=== PATIENT | female | born 1950 | race Caucasian/White ===

== ENCOUNTER → 2018-06-30 | Outpatient (CLI) | payer MEDICARE, BC ==
[~2018-06-30] MED LIST: AMBIEN5 MG PO; BENTYL10 MG PO; CYCLOBENZAPRINE10 MG PO; FLUOXETINE PO; GLYBURIDE-METF1 EAC1 PO; LEVEMIR100 UNIT/1 INJ; LEVOTHYROXINE112 MCG PO; LEVOTHYROXINE125 MCG PO; LISINOPRIL PO; MELOXICAM15 MG PO; MELOXICAM7.5 MG PO; MIRTAZAPINE30 MG PO; NEXIUM20 MG PO; NOVOLOG INJ; OMEPRAZOLE40 MG PO; PANTOPRAZOLE SO40 MG PO; PROPRANOLOL HCL40 MG PO; REGLAN10 MG PO; SERTRALINE HCL50 MG PO; SIMVASTATIN40 MG PO; SINEMET 10-1001 EACH PO; SINEMET 25-1001 EACH PO; SUCRALFATE1 GM PO; ZOFRAN ODT4 MG PO; ZOLPIDEM TARTRA10 MG PO
--- NOTE | 2018-06-30 10:48 | Diagnostic Imaging Report ---
PROCEDURE: X-RAY CHEST, TWO VIEWS COMPARISON: Patients [facility], DX, CHEST SINGLE (PORTABLE), 03/31/2017, 17:53. INDICATIONS: HIGH CHEST PAIN FINDINGS: LUNGS: No consolidations or edema. PLEURA: No effusions or pneumothorax. HEART \T\ MEDIASTINUM: The heart is within normal size-limits. Again noted are surgical clips in the left upper paratracheal region. BONES \T\ SOFT TISSUES: No acute findings. There are mild degenerative changes of the spine. CONCLUSION: No acute thoracic abnormality. Pedro Smith D.O. Dictated by: Pedro Smith D.O. on 06/30/2018 at 10:55 Electronically approved by: Pedro Smith D.O. on 06/30/2018 at 10:55
--- NOTE | 2018-06-30 14:16 | Diagnostic Imaging Report ---
PROCEDURE: L-SPINE COMPLETE COMPARISON: None. INDICATIONS: BACK PAIN FINDINGS: The lumbar spine is in anatomic alignment without evidence of fracture, spondylolisthesis, or spondylolysis. Disc space narrowing at L5-S1 with mild degenerative change. There are clips in the right upper quadrant of the abdomen. The paraspinal soft tissues are normal. CONCLUSION: Disc space narrowing at L5-S1 with mild degenerative change. Pedro Smith D.O. Dictated by: Pedro Smith D.O. on 06/30/2018 at 14:24 Electronically approved by: Pedro Smith D.O. on 06/30/2018 at 14:24
== END ==
LOC: RAD 09:23
DX: M54.5 Low back pain (principal); R07.89 Other chest pain
CPT/HCPCS: 71046; 72110

== ENCOUNTER → 2018-07-08 | Outpatient (CLI) | payer MEDICARE, BC ==
--- NOTE | 2018-07-08 11:19 | Diagnostic Imaging Report ---
EXAMINATION: MRI of the lumbar spine without contrast HISTORY: Mid low back pain radiating to the right lower extremity for the last 4 months COMPARISON: Lumbar spine x-ray done 06/30/2018 TECHNIQUE: Sagittal T1, T2, STIR; axial T2 and proton density. FINDINGS: It is assumed that there are 5 lumbar vertebrae. Curvature/Alignment: Normal lordosis. Vertebrae: No evidence of recent fracture, infection, or neoplasm. Conus: Normal, terminating at L1 Cauda equina: Unremarkable. Lower thoracic: Unremarkable. Paraspinal soft tissues: Moderate paraspinal musculature atrophy. Degenerative changes: L1-L2: Unremarkable. L2-L3: Unremarkable. L3-L4: Bilateral facet arthroses without stenoses L4-L5: Bilateral facet arthrosis without stenoses L5-S1: Decreased disc height and T2 signal intensity, mild symmetric disc bulge, tiny marginal osteophytes and facet arthrosis. Right-sided laminectomy defect, no evidence of recurrent disc herniation. Sacroiliac joints: Mild degenerative changes bilaterally. IMPRESSION: 1. 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 2. Spondylolysis at L5-S1 and decompressive laminectomy. No canal stenosis. No recurrent disc herniation. Signed by: Dr. Jacinda Gallagher M.D. on 07/08/2018 11:16 AM
== END ==
LOC: MRI 09:40
DX: M54.5 Low back pain (principal); M51.36 Other intervertebral disc degeneration, lumbar region
CPT/HCPCS: 72148

== ENCOUNTER → 2018-08-04 | Outpatient (CLI) | payer MEDICARE, BC ==
--- NOTE | 2018-08-04 14:37 | Diagnostic Imaging Report ---
PROCEDURE:X-RAY LEFT HAND, THREE OR MORE VIEWS COMPARISON:None. INDICATIONS:LEFT WRIST/HAND PAIN FROM FALL FINDINGS: There are no fractures, dislocations, lytic or blastic lesions. The bones are demineralized. Degenerative changes with erosion at the base of the second metacarpal are noted. The soft-tissues are unremarkable. CONCLUSION: Diffuse bony osteopenia without evidence of a fracture or dislocation. Pedro Smith D.O. Dictated by: Pedro Smith D.O. on 08/04/2018 at 14:46 Electronically approved by: Pedro Smith D.O. on 08/04/2018 at 14:46
--- NOTE | 2018-08-04 14:39 | Diagnostic Imaging Report ---
PROCEDURE:X-RAY LEFT WRIST, COMPLETE COMPARISON:None. INDICATIONS:LEFT WRIST/HAND PAIN FROM FALL FINDINGS: There are no fractures, dislocations, lytic or blastic lesions. The bones are demineralized. The soft-tissues are unremarkable. CONCLUSION: Bony osteopenia without evidence of a fracture. Pedro Smith D.O. Dictated by: Pedro Smith D.O. on 08/04/2018 at 14:48 Electronically approved by: Pedro Smith D.O. on 08/04/2018 at 14:48
== END ==
LOC: RAD 09:24
DX: M25.532 Pain in left wrist (principal); M79.642 Pain in left hand; W19.XXXA Unspecified fall, initial encounter; M85.842 Other specified disorders of bone density and structure, left hand

== ENCOUNTER → 2018-11-17 | Outpatient (CLI) | payer MEDICARE, BC ==
--- NOTE | 2018-11-17 11:11 | Diagnostic Imaging Report ---
Right knee MRI without contrast. History: Knee pain. Fall. Decreased range of motion. Injury. Arthritis. Pain worse with walking. Comparison: None. Technique: Multiplanar multi-sequence MRI of the knee without contrast. Findings: Medial compartment: There is a complex tear involving the posterior horn and body segments of the medial meniscus best seen on coronal image 15. There are regions of full-thickness articular cartilage loss in the medial compartment with mild underlying bone marrow edema. There are peripheral marginal osteophytes. The medial collateral complex is intact. Lateral compartment: No meniscal tear or cartilage abnormality. The LCL complex is normal. Intercondylar notch: The ACL and PCL are intact. Patellofemoral compartment: There are regions of full-thickness articular cartilage loss in the patellofemoral compartment most pronounced at the medial patellar facet. Extensor mechanism: The quadriceps and patellar tendons are normal. Other findings: There is a joint effusion and synovitis. There is no acute fracture, subluxation or avascular necrosis. IMPRESSION: Complex medial meniscus tear with associated degenerative arthrosis in the medial compartment of the knee. Regions of full-thickness articular cartilage loss in the patellofemoral compartment most pronounced at the medial patellar facet. Signed by: Dr. Rowdy Adrian M.D. on 11/17/2018 11:07 AM
== END ==
LOC: MRI 09:35
DX: M25.561 Pain in right knee (principal)

== ENCOUNTER 2019-02-25 21:21 | Emergency (ER) | payer MEDICARE, BC ==
--- OUTSIDE RECORDS SUMMARY | 2019-02-25 21:23 | XMS REPORT ---
Author [facility] Address Unknown Phone Unavailable Care Team Providers Care Computer Programming Supervisor Name Role Phone LIANA MAYORGA Unavailable Unavailable Problems This patient has no known problems. Allergies, Adverse Reactions, Alerts This patient has no known allergies or adverse reactions. Medications This patient has no known medications. Results Test Description Test Time Test Comments Text Results Atomic Results Result Comments MRI RIGHT KNEE WO 2018-11-17 10:57:00 [place] [address] Patient Name: LUCRECIA GARCIA MR #: [id number] : 1950 Age/Sex: 68/F Req #: [id number] Adm Physician: Ordered by: LIANA MAYORGA MD Report #: [id number] Location: MRI Room/Bed: Procedure: [id number] MRI/MRI RIGHT KNEE WO Exam Date: 11/17/18 Exam Time: 0958 REPORT STATUS: Signed Right knee MRI without contrast. History: Knee pain. Fall. Decreased range of motion. Injury. Arthritis. Pain worse with walking. Comparison: None. Technique: Multiplanar multi-sequence MRI of the knee without contrast. Findings: Medial compartment: There is a complex tear involving the posterior horn and body segments of the medial meniscus best seen on coronal image 15. There are regions of full-thickness articular c artilage loss in the medial compartment with mild underlying bone marrow edema. There are peripheral marginal osteophytes. The medial collateral complex is intact. Lateral compartment: No meniscal tear or cartilage abnormality. The LCL complex is normal. Intercondylar notch: The ACL and PCL are intact. Patellofemoral compartment: There are regions of full- thickness articular cartilage loss in the patellofemoral compartment most pronounced at the medial patellar facet. Extensor mechanism: The quadriceps and patellar tendons are normal. Other findings: There is a joint effusion and synovitis. There is no acute fracture, subluxation or avascular necrosis. IMPRESSION: Complex medial meniscus tear with associated degenerative arthrosis in the medial compartment of the knee. Regions of full-thickness articular cartilage loss in the patellofemoral compartment most pronounced at the medial patellar facet. Signed by: Dr. Rowdy Adrian M.D. on 11/17/2018 11:07 AM Dictated By: ROWDY ADRIAN MD, MD 06 Transcribed By: KAYODE on 11/17/181106 COPY TO: LIANA MAYORGA MD WRIST COMPLETE LEFT 2018-08-04 14:48:00 [place] [address] Patient Name: LUCRECIA GARCIA MR #: [id number] : 1950 Age/Sex: 67/F Req #: [id number] Adm Physician: Ordered by: LIANA MAYORGA MD Report #: [id number] Location: [facility] Room/Bed: Procedure: [id number] DX/WRIST COMPLETE LEFT Exam Date: 08/04/18 Exam Time: 0945 REPORT STATUS: Signed PROCEDURE: X-RAY LEFT WRIST, COMPLETE REGINA RISON: None. INDICATIONS: LEFT WRIST/HAND PAIN FROM FALL FINDINGS: There are no fractures, dislocations, lytic or blastic lesions. The bones are demineralized. The soft-tissues are unremarkable. CONCLUSION: Bony osteopenia without evidence of a fracture. Amol Smith D.O. Dictated by: Amol Smith D.O. on 08/04/2018 at 14:48 Electronically approved by: Amol Smith D.O. on 08/04/2018 at 14:48 Dictated By: AMOL SMITH DO 1448 Transcribed By: OMEGA on 08/04/18 1448 COPY TO: LIANA MAYORGA MD HAND 3+ VIEWS LEFT 2018-08-04 14:46:00 [place] [address] Patient Name: LUCRECIA GARCIA MR #: [id number] : 1950 Age/Sex: 67/F Req #: [id number] Adm Physician: Ordered by: LIANA MAYORGA MD Report #: [id number] Location: [facility] Room/Bed: Procedure: [id number] DX/HAND 3+ VIEWS LEFT Exam Date: 08/04/18 Exam Time: 0945 REPORT STATUS: Signed PROCEDURE: X-RAY LEFT HAND, THREE OR MORE VIEWS COMPARISON: None. INDICATIONS: LEFT WRIST/HAND PAIN FROM FALL FINDINGS: There are no fractures, dislocations, lytic or blastic lesions. The bones are demineralized. Degenerative changes with erosion at the base of the second metacarpal are noted. The soft-tissues are unremarkable. CONCLUSION: Diffuse bony osteopenia without evidence of a fracture or dislo cation. Amol Smith D.O. Dictated by: Amol Smith D.O. on 08/04/2018 at 14:46 Electronically approved by: Amol Smith D.O. on 08/04/2018 at 14:46 Dictated By: AMOL SMITH DO 45 Transcribed By: OMEGA on 08/04/18 1446 COPY TO: LIANA MAYORGA MD MRI SPINE LUMBAR WO 2018-07-08 10:46:00 [place] [address] Patient Name: LUCRECIA GARCIA MR #: [id number] : 1950 Age/Sex: 67/F Req #: [id number] Adm Physician: Ordered by: LIANA MAYORGA MD Report #: [id number] Location: MRI Room/Bed: Procedure: [id number] MRI/MRI SPINE LUMBAR WO Exam Date: Exam Time: REPORT STATUS: Signed EXAMINATION: MRI of the lumbar spine without contrast HISTORY: Mid low back pain radiating to the right lower extremity for the last 4 months COMPARISON: Lumbar spine x-ray done 06/30/2018 TECHNIQUE: Sagittal T1, T2, STIR; axial T2 and proton density. FINDINGS: It is assumed that there are 5 lumbar vertebrae. Curvature/Alignment: Normal lordosis. Vertebrae: No evidence of recent fracture, infection, or neoplasm. Conus: Normal, terminating at L1 Cauda equina: Unremarkable. Lower thoracic: Unremarkable. Paraspinal soft tissues: Moderate paraspinal musculature atrophy. Degenerative changes: L1-L2: Unremarkable. L2-L3: Unremarkable. L3-L4: Bilateral facet arthroses without stenoses L4-L5: Bilateral facet arthrosis without stenoses L5- S1: Decreased disc height and T2 signal intensity, mild symmetric disc bulge, tiny marginal osteophytes and facet arthrosis. Right-sided laminectomy defect, no evidence of recurrent disc herniation. Sacroiliac joints: Mild degenerative changes bilaterally. IMPRESSION: 1. 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 2. Spondylolysis at L5-S1 and decompressive laminectomy. No canal stenosis. No recurrent disc herniation. Signed by: Dr. Raegan Gallagher M.D. on 07/08/2018 11:16 AM Dictated By: RAEGAN GALLAGHER MD 111 Transcribed By: KAYODE on 07/08/18 111 COPY TO: LIANA MAYORGA MD SP LUMBAR, COMPLETE MIN 4VW 2018-06-30 14:24:00 [place] [address] Patient Name: LUCRECIA GARCIA MR #: [id number] : 1950 Age/Sex: 67/F Req #: [id number] Adm Physician: Ordered by: LIANA MAYORGA MD Report #: [id number] Location: [facility] Room/Bed: Procedure: [id number] DX/SP LUMBAR, COMPLETE MIN 4VW Exam Date: 06/30/18 Exam Time: 1000 REPORT STATUS: Signed PROCEDURE: L-SPINE COMPLETE COMPARISON: None. INDICATIONS: BACK PAIN FINDINGS: The lumbar spine is in anatomic alignment without evidence of fracture, spondylolisthesis, or spondylolysis. Disc space narrowing at L5-S1 with mild degenerative change. There are clips in the right upper quadrant of the abdomen. The paraspinal soft tissues are normal. CONCLUSION: Disc space narrowing at L5-S1 with mild degenerative change. Amol Smith D.O. Dictated by: Amol Smith D.O. on 06/30/2018 at 14:24 Electronically approved by: Amol Smith D.O. on 06/30/2018 at 14:24 Dictated By: AMOL SMITH DO 142 Transcribed By: OMEGA on 06/30/18 142 COPY TO: LIANA MAYORGA MD CHEST 2 VIEWS 2018-06-30 10:55:00 [place] [address] Patient Name: LUCRECIA GARCIA MR #: [id number] : 1950 Age/Sex: 67/F Req #: [id number] Adm Physician: Ordered by: LIANA MAYORGA MD Report #: [id number] Location: RAD Room/Bed: Procedure: [id number] DX/CHEST 2 VIEWS Exam Date: 06/30/18 Exam Time: 1000 REPORT STATUS: Signed PROCEDURE: X-RAY CHEST, TWO VIEWS COMPARISON: [facility], DX, CHEST SINGLE (PORTABLE), 03/31/2017, 17:53. INDICATIONS: HIGH CHEST PAIN FINDINGS: LUNGS: No consolidations or edema. PLEURA: No effus ions or pneumothorax. HEART T MEDIASTINUM: The heart is within normal size-limits. Again noted are surgical clips in the left upper paratracheal region. BONES T SOFT TISSUES: No acute findings. There are mild degenerative changes of the spine. CONCLUSION: No acute thoracic abnormality. Amol Smith D.O. Dictated by: Amol Smith D.O. on 06/30/2018 at 10:55 Electronically approved by: Amol Smith D.O. on 06/30/2018 at 10:55 Dictated By: AMOL SMITH DO 1055 Transcribed By: OMEGA on 06/30/18 1055 COPY TO: LIANA MAYORGA MD
== END 2019-02-25 21:40 | disposition left against medical advice (07) ==
LOC: ER 21:21
DX: R10.9 Unspecified abdominal pain (principal)

== ENCOUNTER → 2019-09-14 | Outpatient (CLI) | payer MEDICARE, BC ==
--- NOTE | 2019-09-14 10:32 | Diagnostic Imaging Report ---
EXAM: CHEST 2 VIEWS DATE: 09/14/2019 9:35 AM INDICATION: Shortness of breath COMPARISON: None FINDINGS: Multiple surgical clips noted projected over the superior mediastinum. The trachea is midline. The lungs are symmetrically expanded without evidence for focal consolidation, pneumothorax, or significant pleural effusion. The cardiomediastinal silhouette is within normal limits. No acute osseous abdomen bodies identified. IMPRESSION: No acute cardiopulmonary process identified. Signed by: Dr. Bran Perez MD on 09/14/2019 10:29 AM
== END ==
LOC: RAD 09:27
DX: R05 Cough (principal)
CPT/HCPCS: 71046

== ENCOUNTER → 2019-11-17 | Outpatient (CLI) | payer MEDICARE, BC ==
--- NOTE | 2019-11-17 12:39 | Diagnostic Imaging Report ---
Exam: Cervical ultrasound Clinical history: Hypercalcemia Findings: The patient is status post total thyroidectomy. There is no evidence of residual mass, lymphadenopathy, or fluid collection noted. No sonographic evidence of enlarged parathyroid gland visualized in the region evaluated. Impression: 1. Status post total thyroidectomy. Otherwise, unremarkable cervical ultrasound. Signed by: Dr. Sachin Dodd MD on 11/17/2019 12:37 PM
== END ==
LOC: US 10:36
PROVIDERS: ATTEND Internal Medicine
DX: E83.52 Hypercalcemia (principal)
CPT/HCPCS: 76536

== ENCOUNTER → 2019-11-23 | Outpatient (CLI) | payer MEDICARE, BC ==
--- NOTE | 2019-11-23 16:36 | Diagnostic Imaging Report ---
Parathyroid Scan with SPECT Reason for exam: Hyperparathyroidism, hypercalcemia Radiopharmaceutical: Tc-99m sestamibi 27.5 mCi After intravenous administration of the radiopharmaceutical, immediate and 2-hour planar images of the neck and upper chest were obtained. Tomographic images of the neck and upper chest were also obtained following the initial planar images. The thyroid is not seen on the initial planar, tomographic or delayed planar images. No abnormal focal accumulation of tracer is seen in the neck or upper chest on any of the images. Impression: Negative parathyroid scan 1. No enlarged hypermetabolic parathyroid glands are identified. 2. Absent thyroid may be due to thyroidectomy or suppressive dosage of levothyroxine. Signed by: Dr. Yanelis Castro M.D. on 11/23/2019 4:33 PM
== END ==
LOC: NM 09:22
PROVIDERS: ATTEND Internal Medicine
DX: E83.52 Hypercalcemia (principal)
CPT/HCPCS: 78071; A9500

== ENCOUNTER → 2020-03-17 | Day surgery (SDC) | payer MEDICARE, BC, OTHER ==
[2020-03-14 11:14] LABS: BASOPHILS % 0.5 % (0.0-1.0); EOSINOPHILS # (AUTO) 0.1 (0.0-0.4); EOSINOPHILS % 1.5 % (0.0-6.0); HEMATOCRIT 41.7 % (34.2-44.1); HEMOGLOBIN 13.2 g/dL (12.0-16.0); LYMPHOCYTES # (AUTO) 1.6 (1.0-3.2); LYMPHOCYTES % 18.4 % (18.0-39.1); MEAN CORPUSCULAR HEMOGLOBIN 29.9 pg (28-32); MEAN CORPUSCULAR HGB CONC 31.7 g/dL (31-35); MEAN CORPUSCULAR VOLUME 94.3 fL (81-99); MONOCYTES # (AUTO) 0.7 (0.2-0.8); MONOCYTES % 7.6 % (4.4-11.3); NEUTROPHILS # (AUTO) 6.3 (2.1-6.9); NEUTROPHILS % 71.5 % (38.7-80.0); PLATELET COUNT 268 x10e3/uL (140-360); RED BLOOD COUNT 4.42 x10e6/uL (3.6-5.1); RED CELL DISTRIBUTION WIDTH 13.3 % (11.7-14.4)
[~2020-03-17] MED LIST changes: +DEXMEDETOMIDINE HCL 2 ML ONE; +FENTANYL CITRATE/PF 100MCG/2 ML INJ ONE; +FLUOXETINE HCL20 M1 PO; +HUMALOG100 UNIT/1 SC; +HYDROCHLOROTHIA25 MG PO; +HYOSCYAMINE 0.125 MG TAB ONE; +LEVOTHYROXINE50 MCG PO; +LIDOCAINE HCL 2% LOCAL INJ 5 ML SDV VIAL INJ ONE; +LISINOPRIL2.5 MG PO; +MIDAZOLAM HCL 2 MG/2 ML VIAL ONE; +PROPOFOL IV EMULSION 10 MG/ML 20 ML VIAL ONE; +PROPRANOLOL HCL80 MG PO; +VIT D3 PO
[2020-03-17 09:46] LABS: WBC,FECAL (FECAL LACTOFERRIN) NEGATIVE (NEGATIVE)
[2020-03-17 09:50] VITALS: BP 100/53
[2020-03-17 14:07] LABS: C DIFFICILE TOXIN A&B AMP PROB NEGATIVE (NEGATIVE)
--- NOTE | 2020-03-17 16:04 | Operative Report ---
DATE OF PROCEDURE: 03/17/2020 SURGEON: Pan Reis MD PROCEDURES: EGD with esophageal dilatation and biopsies and colonoscopy with polypectomy and biopsies. INDICATIONS FOR EGD: Dysphagia. INDICATIONS FOR COLONOSCOPY: Surveillance colonoscopy, personal history of colon polyps, change in bowel habits. MEDICATIONS: The patient was done under MAC, please see anesthesiologist's note. PROCEDURE IN DETAIL: With the patient in left lateral decubitus position, a flexible fiberoptic Olympus gastroscope was introduced into the esophagus under direct visualization without any difficulty. There was some patchy erythema noted in distal esophagus. There was a mild stricture noted at the GE junction, it was dilated to size 54-Malagasy Bailon. The scope was then advanced with ease into the stomach, traversing a small sliding hiatal hernia. Mucosa overlying the antrum and the body revealed some patchy erythema and [id number] edema, and biopsies were obtained, sent to stain for H. pylori. Pylorus was of normal contour and shape, it was intubated with ease and the scope was advanced all the way to the second portion of the duodenum. Biopsies were obtained from the proximal second portion and duodenal bulb to rule out sprue. The scope was then withdrawn back into the stomach and retroflexed, mucosa overlying the fundus and cardia appeared to be within normal limits. The scope was then straightened out, it was subsequently withdrawn. The patient tolerated the procedure well. IMPRESSION: 1. Distal esophagitis, mild. 2. Esophageal stricture GE junction, dilated to size 54-Malagasy Bailon. 3. Small sliding hiatal hernia. 4. Gastritis, biopsied, biopsies sent to stain for H. pylori. 5. Rule out sprue. PLAN: 1. Follow up histology. 2. Initiate Protonix 40 mg one p.o. q.a.m. a.c. DESCRIPTION OF PROCEDURE: The patient was then turned around after adequate lubrication of the anal canal, a flexible fiberoptic Olympus colonoscope was inserted into the rectum with ease and advanced all the way to the cecum. It was then withdrawn slowly, mucosa overlying the cecum appeared to be within normal limits. One minute polyp was removed per cold biopsy forceps in the ascending colon. There was some patchy mild inflammatory changes noted throughout the colon, multiple random biopsies were obtained. Diverticular disease was noted to involve the distal descending and the sigmoid colon. Some other inflammatory findings were noted in the rectum, biopsies were obtained. The scope was then retroflexed into the distal rectum, small internal hemorrhoids were noted, none of which was actively bleeding. The scope was then straightened out, it was subsequently withdrawn after securing an adequate stool specimen, that was sent for the appropriate stool studies. The patient tolerated the procedure well. IMPRESSION: 1. Ascending colon polyp removed per the cold biopsy forceps. 2. Mild patchy colitis. 3. Diverticulosis. 4. Proctitis, mild. 5. Internal hemorrhoids, none actively bleeding. PLAN: 1. Followup histology. 2. Follow up stool studies. 3. Initiate VSL #3 one p.o. b.i.d. 4. Start Bentyl 10 mg one p.o. t.i.d. Pan Reis MD [facility] [place] /[id number] cc: Adam Reis MD
== END | disposition home or self-care (01) ==
LOC: OR 06:30
PROVIDERS: ATTEND Internal Medicine Gastroenterology
DX: K21.0 Gastro-esophageal reflux disease with esophagitis (principal); D12.2 Benign neoplasm of ascending colon; K29.50 Unspecified chronic gastritis without bleeding; K22.2 Esophageal obstruction; K29.80 Duodenitis without bleeding; K44.9 Diaphragmatic hernia without obstruction or gangrene; K52.9 Noninfective gastroenteritis and colitis, unspecified; K57.30 Diverticulosis of large intestine without perforation or abscess without bleeding; K62.89 Other specified diseases of anus and rectum; K59.00 Constipation, unspecified; K64.8 Other hemorrhoids; I11.0 Hypertensive heart disease with heart failure; I50.9 Heart failure, unspecified; E03.9 Hypothyroidism, unspecified; E11.9 Type 2 diabetes mellitus without complications; G20 Parkinson's disease; F32.9 Major depressive disorder, single episode, unspecified; F41.9 Anxiety disorder, unspecified; Z88.6 Allergy status to analgesic agent; Z01.810 Encounter for preprocedural cardiovascular examination; Z01.812 Encounter for preprocedural laboratory examination; Z11.59 Encounter for screening for other viral diseases; Z79.4 Long term (current) use of insulin; Z68.33 Body mass index [BMI] 33.0-33.9, adult; Z85.850 Personal history of malignant neoplasm of thyroid; Z80.0 Family history of malignant neoplasm of digestive organs
CPT/HCPCS: 36415 ×2; 43239; 43450; 45380; 82948; 83630; 83993; 85025; 87045; 87177; 87328; 87493; 87635; 88305; 88312; 93005; J2001; J2250; J2704; J3010

== ENCOUNTER → 2020-10-24 | Day surgery (SDC) | payer MEDICARE, BC ==
[2020-10-20 09:15] LABS: BASOPHILS # (AUTO) 0.1 (0.0-0.1); BASOPHILS % 0.8 % (0.0-1.0); EOSINOPHILS # (AUTO) 0.3 (0.0-0.4); EOSINOPHILS % 3.1 % (0.0-6.0); HEMOGLOBIN 13.8 g/dL (12.0-16.0); LYMPHOCYTES # (AUTO) 1.9 (1.0-3.2); LYMPHOCYTES % 21.2 % (18.0-39.1); MEAN CORPUSCULAR HEMOGLOBIN 30.8 pg (28-32); MEAN CORPUSCULAR HGB CONC 32.1 g/dL (31-35); MONOCYTES # (AUTO) 0.7 (0.2-0.8); MONOCYTES % 8.2 % (4.4-11.3); NEUTROPHILS % 66.3 % (38.7-80.0); PLATELET COUNT 260 x10e3/uL (140-360); RED BLOOD COUNT 4.48 x10e6/uL (3.6-5.1); RED CELL DISTRIBUTION WIDTH 12.8 % (11.7-14.4)
[2020-10-20 09:30] LABS: CALCIUM 9.8 mg/dL (8.4-10.2); CREATININE, SERUM 1.17 mg/dL (0.57-1.11)
[~2020-10-24] MED LIST changes: +ACETAMINOPHEN/CODEINE 300MG - 30MG TAB ONE; +BUPIVACAINE HCL 0.5% INJ 30 ML VIAL INJ ONE; +CEFAZOLIN SOD 1 GM/NS 50ML 50 ML IV ONE; +DEXAMETHASONE SOD PHOS INJ 4 MG/ML VIAL ONE; -DEXMEDETOMIDINE HCL 2 ML ONE; +EPHEDRINE SULFATE INJ 50 MG/ML VIAL ONE; -FENTANYL CITRATE/PF 100MCG/2 ML INJ ONE; -HYOSCYAMINE 0.125 MG TAB ONE; +KETOROLAC TROMETHAMINE 30 MG/ML VIAL ONE; -MIDAZOLAM HCL 2 MG/2 ML VIAL ONE; +MUPIROCIN 2% OINT 22 GM TUBE ONE; +ONDANSETRON HCL INJ 2MG/ML 2ML 2 MG/ML VIAL ONE; +PROPANOL PO; +SEVOFLURANE INHAL SOLN 250 ML PEN BTL ONE; +SPIRONOLACTONE25 MG PO; +VITAMIN E400 UNI1 PO; +ZOLOFT50 MG PO
[2020-10-24 09:40] VITALS: BP 117/62
== END | disposition home or self-care (01) ==
LOC: OR 06:00
PROVIDERS: ATTEND Plastic Surgery
DX: M67.432 Ganglion, left wrist (principal); G56.02 Carpal tunnel syndrome, left upper limb; M65.832 Other synovitis and tenosynovitis, left forearm; E11.9 Type 2 diabetes mellitus without complications; E03.9 Hypothyroidism, unspecified; I10 Essential (primary) hypertension; E78.5 Hyperlipidemia, unspecified; K21.9 Gastro-esophageal reflux disease without esophagitis; I44.0 Atrioventricular block, first degree; R00.1 Bradycardia, unspecified; Z01.810 Encounter for preprocedural cardiovascular examination; Z01.812 Encounter for preprocedural laboratory examination; Z01.818 Encounter for other preprocedural examination; Z20.822 Contact with and (suspected) exposure to COVID-19; Z79.4 Long term (current) use of insulin
CPT/HCPCS: 25115; 36415 ×2; 71046; 80048; 82948; 85025; 93005; J0690; J1100; J1885; J2001; J2405; J2704; U0002

== ENCOUNTER → 2020-11-16 | Day surgery (SDC) | payer MEDICARE, BC ==
[~2020-11-16] MED LIST changes: -ACETAMINOPHEN/CODEINE 300MG - 30MG TAB ONE; +BUPIVACAINE HCL 0.5% 10ML MPF VIAL INJ ONE; -BUPIVACAINE HCL 0.5% INJ 30 ML VIAL INJ ONE; -DEXAMETHASONE SOD PHOS INJ 4 MG/ML VIAL ONE; -EPHEDRINE SULFATE INJ 50 MG/ML VIAL ONE; -KETOROLAC TROMETHAMINE 30 MG/ML VIAL ONE; -LIDOCAINE HCL 2% LOCAL INJ 5 ML SDV VIAL INJ ONE; -ONDANSETRON HCL INJ 2MG/ML 2ML 2 MG/ML VIAL ONE; -PROPOFOL IV EMULSION 10 MG/ML 20 ML VIAL ONE; +SCOPOLAMINE 1.5 MG PATCH ONE; -SEVOFLURANE INHAL SOLN 250 ML PEN BTL ONE
[2020-11-16 09:16] VITALS: BP 107/57
== END | disposition home or self-care (01) ==
LOC: OR 06:01
PROVIDERS: ATTEND Plastic Surgery
DX: G56.01 Carpal tunnel syndrome, right upper limb (principal); M65.831 Other synovitis and tenosynovitis, right forearm; E11.9 Type 2 diabetes mellitus without complications; I10 Essential (primary) hypertension; E78.5 Hyperlipidemia, unspecified; N28.9 Disorder of kidney and ureter, unspecified; F32.9 Major depressive disorder, single episode, unspecified; Z01.812 Encounter for preprocedural laboratory examination; Z20.822 Contact with and (suspected) exposure to COVID-19; Z79.4 Long term (current) use of insulin
CPT/HCPCS: 25115; 36415; 82948; J0690; U0002

== ENCOUNTER → 2020-12-25 | Outpatient (CLI) | payer MEDICARE, BC ==
[~2020-12-25] MED LIST changes: -BUPIVACAINE HCL 0.5% 10ML MPF VIAL INJ ONE; -CEFAZOLIN SOD 1 GM/NS 50ML 50 ML IV ONE; -MUPIROCIN 2% OINT 22 GM TUBE ONE; -SCOPOLAMINE 1.5 MG PATCH ONE
== END ==
LOC: RAD 16:00
PROVIDERS: ATTEND Internal Medicine Gastroenterology
DX: K59.00 Constipation, unspecified (principal)
CPT/HCPCS: 74022

== ENCOUNTER → 2021-05-02 | Outpatient (CLI) | payer MEDICARE, BC ==
[~2021-05-02] MED LIST changes: +IOPAMIDOL 370 MG/ML 200 ML INFUS..BTL INJ ONE; +SODIUM CHLORIDE 0.9% 50ML 50 ML ONE
[2021-05-03 10:58] LABS: CREATININE, SERUM 0.92 mg/dL (0.57-1.11); EST GLOMERULAR FILTRATION RATE > 60 ML/MIN (60-)
== END ==
LOC: CT 10:38
PROVIDERS: ATTEND Internal Medicine Gastroenterology
DX: R10.10 Upper abdominal pain, unspecified (principal); K62.89 Other specified diseases of anus and rectum
CPT/HCPCS: 36415; 74177; 82565; Q9967

== ENCOUNTER → 2021-05-24 | Day surgery (SDC) | payer MEDICARE, BC ==
[~2021-05-24] MED LIST changes: +EUTHYROX112 MCG PO; -IOPAMIDOL 370 MG/ML 200 ML INFUS..BTL INJ ONE; -SODIUM CHLORIDE 0.9% 50ML 50 ML ONE
[2021-05-24 13:50] VITALS: BP 129/73
== END | disposition home or self-care (01) ==
LOC: OR 09:12
PROVIDERS: ATTEND Internal Medicine Gastroenterology
DX: K29.70 Gastritis, unspecified, without bleeding (principal); D12.2 Benign neoplasm of ascending colon; K31.7 Polyp of stomach and duodenum; K20.90 Esophagitis, unspecified without bleeding; K52.9 Noninfective gastroenteritis and colitis, unspecified; K21.9 Gastro-esophageal reflux disease without esophagitis; K44.9 Diaphragmatic hernia without obstruction or gangrene; K57.30 Diverticulosis of large intestine without perforation or abscess without bleeding; K64.8 Other hemorrhoids; I44.30 Unspecified atrioventricular block; I10 Essential (primary) hypertension; E11.9 Type 2 diabetes mellitus without complications; E03.9 Hypothyroidism, unspecified; R07.89 Other chest pain; E78.00 Pure hypercholesterolemia, unspecified; R60.9 Edema, unspecified; F32.9 Major depressive disorder, single episode, unspecified; F41.9 Anxiety disorder, unspecified; Z88.6 Allergy status to analgesic agent; Z01.812 Encounter for preprocedural laboratory examination; Z20.822 Contact with and (suspected) exposure to COVID-19; Z79.4 Long term (current) use of insulin; Z68.31 Body mass index [BMI] 31.0-31.9, adult; Z85.850 Personal history of malignant neoplasm of thyroid
CPT/HCPCS: 36415; 43239; 43450; 45380; 82948; 88305; 88312; 93005; U0002; 45378

== ENCOUNTER → 2021-06-15 | Outpatient (CLI) | payer MEDICARE, BC | LOC: SLEEP 20:24 | DX: G47.30 Sleep apnea, unspecified (principal); M54.2 Cervicalgia; E11.9 Type 2 diabetes mellitus without complications; R53.1 Weakness | CPT/HCPCS: 95810 ==

== ENCOUNTER → 2021-09-07 | Outpatient (CLI) | payer MEDICARE, BC | LOC: RAD 12:40 | PROVIDERS: ATTEND Internal Medicine Rheumatology | DX: M25.542 Pain in joints of left hand (principal); M25.541 Pain in joints of right hand; M54.2 Cervicalgia; M54.50 Low back pain, unspecified | CPT/HCPCS: 72050; 72100 ==

== ENCOUNTER → 2022-06-03 | Outpatient (CLI) | payer MEDICARE, BC | LOC: US 08:35 | DX: R14.0 Abdominal distension (gaseous) (principal) | CPT/HCPCS: 76700 ==

== ENCOUNTER 2022-06-25 11:55 | Emergency (ER) | payer MEDICARE, BC ==
[~2022-06-25] VITALS: Ht 167.6 cm; Wt 90.7 kg
[2022-06-25] MEDS ORDERED: SODIUM CHLORIDE 0.9% 1000ML 500 ML IV ONE (12:30)
[2022-06-25] MEDS ORDERED: ONDANSETRON HCL INJ 2MG/ML 2ML 2 MG/ML VIAL IV PRN (12:30)
[2022-06-25 12:48] LABS: BASOPHILS # (AUTO) 0.1 (0.0-0.1); BASOPHILS % 0.3 % (0.0-1.0); EOSINOPHILS # (AUTO) 0.1 (0.0-0.4); EOSINOPHILS % 0.4 % (0.0-6.0); HEMATOCRIT 40.8 % (34.2-44.1); HEMOGLOBIN 13.7 g/dL (12.0-16.0); LYMPHOCYTES # (AUTO) 0.3 (1.0-3.2); LYMPHOCYTES % 2.2 % (18.0-39.1); MEAN CORPUSCULAR HEMOGLOBIN 31.4 pg (28-32); MEAN CORPUSCULAR HGB CONC 33.6 g/dL (31-35); MEAN CORPUSCULAR VOLUME 93.6 fL (81-99); MONOCYTES # (AUTO) 0.8 (0.2-0.8); MONOCYTES % 4.9 % (4.4-11.3); NEUTROPHILS # (AUTO) 14.1 (2.1-6.9); NEUTROPHILS % 91.7 % (38.7-80.0); PLATELET COUNT 277 x10e3/uL (140-360); RED BLOOD COUNT 4.36 x10e6/uL (3.6-5.1); RED CELL DISTRIBUTION WIDTH 12.7 % (11.7-14.4)
[2022-06-25 13:14] LABS: MAGNESIUM 1.6 MG/DL (1.3-2.1)
[2022-06-25 13:16] LABS: ALBUMIN 3.9 g/dL (3.5-5.0); ALBUMIN/GLOBULIN RATIO 1.1 (0.8-2.0); CALCIUM 10.3 mg/dL (8.4-10.2); CREATININE, SERUM 1.45 mg/dL (0.57-1.11)
[2022-06-25] MEDS ORDERED: SODIUM CHLORIDE 0.9% 500ML 500 ML ONE (13:40)
[2022-06-25 14:13] LABS: CLARITY,URINE CLEAR (CLEAR); COLOR,URINE YELLOW (YELLOW)
[2022-06-25 14:14] LABS: KETONES,URINE NEGATIVE (NEGATIVE); LEUKOCYTE ESTERASE ,URINE NEGATIVE (NEGATIVE); NITRITE,URINE NEGATIVE (NEGATIVE); PROTEIN,URINE DIPSTICK NEGATIVE (NEGATIVE); URINE UROBILINOGEN 0.2 mg/dL (0.2 - 1)
[2022-06-25 14:16] LABS: BACTERIA,URINE RARE /HPF
[2022-06-25] MEDS ORDERED: ONDANSETRON ODT4 MG PO (16:20)
[2022-06-25] MEDS ORDERED: DICYCLOMINE HCL20 MG PO (16:20)
== END 2022-06-25 17:10 | disposition home or self-care (01) ==
LOC: ER 12:04
DX: R11.2 Nausea with vomiting, unspecified (principal); K52.9 Noninfective gastroenteritis and colitis, unspecified; E11.65 Type 2 diabetes mellitus with hyperglycemia; R42 Dizziness and giddiness; I10 Essential (primary) hypertension; N28.9 Disorder of kidney and ureter, unspecified; G20 Parkinson's disease
CPT/HCPCS: 36415; 74176; 80053; 81001; 83690; 83735; 84484; 85025; 93005; 99284; J7040

== ENCOUNTER 2022-10-17 15:29 | Emergency (ER) | payer MEDICARE, BC ==
[~2022-10-17] VITALS: Ht 167.6 cm; Wt 90.7 kg
[~2022-10-17 15:29] MED LIST changes: +DICYCLOMINE HCL20 MG PO; +ONDANSETRON ODT4 MG PO
== END 2022-10-17 18:20 | disposition home or self-care (01) ==
LOC: ER 15:35
DX: M25.461 Effusion, right knee (principal); Z96.651 Presence of right artificial knee joint; I10 Essential (primary) hypertension; E11.649 Type 2 diabetes mellitus with hypoglycemia without coma; G20 Parkinson's disease; N28.9 Disorder of kidney and ureter, unspecified; E03.9 Hypothyroidism, unspecified
CPT/HCPCS: 36415; 82948; 93971; 99283

== ENCOUNTER 2023-01-28 12:28 | Emergency (ER) | payer MEDICARE, BC ==
[~2023-01-28] VITALS: Ht 167.6 cm; Wt 86.2 kg
== END 2023-01-28 13:34 | disposition home or self-care (01) ==
LOC: FSED 12:33
DX: S92.515A Nondisplaced fracture of proximal phalanx of left lesser toe(s), initial encounter for closed fracture (principal); W22.09XA Striking against other stationary object, initial encounter; Y93.01 Activity, walking, marching and hiking; Y92.89 Other specified places as the place of occurrence of the external cause; I12.9 Hypertensive chronic kidney disease with stage 1 through stage 4 chronic kidney disease, or unspecified chronic kidney disease; E11.22 Type 2 diabetes mellitus with diabetic chronic kidney disease; N18.9 Chronic kidney disease, unspecified; G20 Parkinson's disease; E03.9 Hypothyroidism, unspecified
CPT/HCPCS: 99283

== ENCOUNTER → 2024-07-08 | Outpatient (REF) | payer MEDICARE, BC ==
[~2024-07-08] MED LIST changes: +CALCIUM CARBON500 MG PO; +MAGNESIUM OXID400 MG PO; +NEURONTIN100 MG PO; +PRIMIDONE125 MG; +VIT B12 PO; +VIT C PO
== END ==
LOC: US 14:39
PROVIDERS: ATTEND Internal Medicine
DX: R05.9 Cough, unspecified (principal); R10.9 Unspecified abdominal pain
CPT/HCPCS: 71046; 76700

== ENCOUNTER 2024-07-30 19:39 | Emergency (ER) | payer MEDICARE, BC ==
[~2024-07-30] VITALS: Ht 165.1 cm; Wt 90.7 kg
[2024-07-30 20:56] LABS: INFLUENZAE A&B ANTIGEN (RAPID) NEGATIVE (NEGATIVE)
[2024-07-30 21:00] LABS: RESPIRATORY SYNC. VIRUS NEGATIVE (NEGATIVE)
[2024-07-30] MEDS: ONDANSETRON HCL INJ 2MG/ML 2ML 2 MG/ML VIAL IV STA (21:47)
[2024-07-30] MEDS: SODIUM CHLORIDE 0.9% 1000ML 1,000 ML IV ONE (21:47)
[2024-07-30] MEDS: ACETAMINOPHEN 1000 MG/100 ML IV STA (21:48)
[2024-07-30 22:07] LABS: BASOPHILS # (AUTO) 0.1 (0.0-0.1); BASOPHILS % 0.6 % (0.0-1.0); EOSINOPHILS % 0.3 % (0.0-6.0); HEMATOCRIT 40.9 % (34.2-44.1); HEMOGLOBIN 12.9 g/dL (12.0-16.0); LYMPHOCYTES # (AUTO) 1.6 (1.0-3.2); LYMPHOCYTES % 12.6 % (18.0-39.1); MEAN CORPUSCULAR HGB CONC 31.5 g/dL (31-35); MEAN CORPUSCULAR VOLUME 98.3 fL (81-99); MONOCYTES # (AUTO) 0.5 (0.2-0.8); MONOCYTES % 3.6 % (4.4-11.3); NEUTROPHILS # (AUTO) 10.7 (2.1-6.9); NEUTROPHILS % 82.6 % (38.7-80.0); PLATELET COUNT 287 x10e3/uL (140-360); RED BLOOD COUNT 4.16 x10e6/uL (3.6-5.1); RED CELL DISTRIBUTION WIDTH 13.2 % (11.7-14.4); WHITE BLOOD COUNT 12.93 x10e3/uL (4.8-10.8)
[2024-07-30 22:21] LABS: ALBUMIN 3.9 g/dL (3.5-5.0); ANION GAP 17.4 mmol/L (8-16); BILIRUBIN,TOTAL 0.8 mg/dL (0.2-1.2); CALCIUM 10.2 mg/dL (8.4-10.2); CREATININE, SERUM 1.84 mg/dL (0.57-1.11); POTASSIUM 4.4 mmol/L (3.5-5.1); TOTAL PROTEIN 7.8 g/dL (6.5-8.1)
[2024-07-30 23:44] LABS: BILIRUBIN,URINE NEGATIVE (NEGATIVE); CLARITY,URINE CLEAR (CLEAR); COLOR,URINE YELLOW (YELLOW); GLUCOSE, URINE NEGATIVE (NEGATIVE); KETONES,URINE 1+ (NEGATIVE); LEUKOCYTE ESTERASE ,URINE SMALL (NEGATIVE); NITRITE,URINE NEGATIVE (NEGATIVE); PH,URINE 7 (5 - 7); PROTEIN,URINE DIPSTICK NEGATIVE (NEGATIVE); URINE UROBILINOGEN 0.2 mg/dL (0.2 - 1)
[2024-07-30 23:45] LABS: BACTERIA,URINE MODERATE /HPF; EPITHELIAL CELLS,URINE FEW /LPF; RBC,URINE 0-5 /HPF (0-5)
[2024-07-31 00:22] VITALS: PULSE 92; RESP 16; TEMP 98.8
[2024-07-31] MEDS ORDERED: CEFDINIR300 MG PO (00:54)
[2024-07-31] MEDS ORDERED: ONDANSETRON ODT4 MG SL (00:54)
[2024-07-31] MEDS: ONDANSETRON HCL INJ 2MG/ML 2ML 2 MG/ML VIAL IV STA (01:15)
[2024-07-31 01:21] VITALS: BP 126/65; PULSE 88; RESP 16; TEMP 98.6; O2SAT 99
[2024-08-01] MEDS ORDERED: PROMETHAZINE12.5 MG PR (17:23)
== END 2024-07-31 01:25 | disposition home or self-care (01) ==
LOC: ER 22:27
DX: R50.9 Fever, unspecified (principal); N39.0 Urinary tract infection, site not specified; R11.2 Nausea with vomiting, unspecified; R51.9 Headache, unspecified; I12.9 Hypertensive chronic kidney disease with stage 1 through stage 4 chronic kidney disease, or unspecified chronic kidney disease; E11.22 Type 2 diabetes mellitus with diabetic chronic kidney disease; E11.65 Type 2 diabetes mellitus with hyperglycemia; N18.9 Chronic kidney disease, unspecified; G20.A1 Parkinson's disease without dyskinesia, without mention of fluctuations; E03.9 Hypothyroidism, unspecified; M19.09 Primary osteoarthritis, other specified site; Z11.52 Encounter for screening for COVID-19
CPT/HCPCS: 0223U; 36415; 71045; 74176; 80053; 81001; 83605; 84484; 85025; 87040; 87086; 87400; 87420; 93005; 99284; J0131; J2405 ×2; J2543; J7030

== ENCOUNTER 2024-08-01 14:38 | Emergency (ER) | payer MEDICARE, BC ==
[~2024-08-01] VITALS: Ht 165.1 cm; Wt 90.7 kg
[~2024-08-01 14:38] MED LIST changes: +CEFDINIR300 MG PO; +ONDANSETRON ODT4 MG SL
[2024-08-01 15:38] VITALS: PULSE 80; RESP 16; TEMP 98.7; O2SAT 98
[2024-08-01 16:06] LABS: BASOPHILS # (AUTO) 0.1 (0.0-0.1); BASOPHILS % 0.6 % (0.0-1.0); EOSINOPHILS # (AUTO) 0.2 (0.0-0.4); EOSINOPHILS % 1.8 % (0.0-6.0); HEMATOCRIT 37.9 % (34.2-44.1); HEMOGLOBIN 12.1 g/dL (12.0-16.0); LYMPHOCYTES # (AUTO) 1.9 (1.0-3.2); LYMPHOCYTES % 19.4 % (18.0-39.1); MEAN CORPUSCULAR HGB CONC 31.9 g/dL (31-35); MEAN CORPUSCULAR VOLUME 97.2 fL (81-99); MONOCYTES # (AUTO) 0.6 (0.2-0.8); MONOCYTES % 6.4 % (4.4-11.3); NEUTROPHILS # (AUTO) 6.9 (2.1-6.9); NEUTROPHILS % 71.4 % (38.7-80.0); PLATELET COUNT 251 x10e3/uL (140-360); WHITE BLOOD COUNT 9.64 x10e3/uL (4.8-10.8)
[2024-08-01 16:33] LABS: ALBUMIN 3.8 g/dL (3.5-5.0); ALBUMIN/GLOBULIN RATIO 1.1 (0.8-2.0); ANION GAP 16.8 mmol/L (8-16); BILIRUBIN,TOTAL 0.6 mg/dL (0.2-1.2); CALCIUM 10.4 mg/dL (8.4-10.2); CREATININE, SERUM 1.69 mg/dL (0.57-1.11); MAGNESIUM 1.7 MG/DL (1.3-2.1); POTASSIUM 3.8 mmol/L (3.5-5.1); TOTAL PROTEIN 7.3 g/dL (6.5-8.1)
[2024-08-01] MEDS ORDERED: PROMETHAZINE12.5 MG PR (17:23)
[2024-08-01] MEDS: PROMETHAZINE 12.5MG/ NACL 0.9% 12.5 MG/50 ML BAG IV ONE (18:20)
[2024-08-01] MEDS: SODIUM CHLORIDE 0.9% 1000ML 1,000 ML IV STA (18:22)
== END 2024-08-01 19:33 | disposition home or self-care (01) ==
LOC: ER 15:13
DX: R11.2 Nausea with vomiting, unspecified (principal); N39.0 Urinary tract infection, site not specified; R53.83 Other fatigue; I12.9 Hypertensive chronic kidney disease with stage 1 through stage 4 chronic kidney disease, or unspecified chronic kidney disease; E11.22 Type 2 diabetes mellitus with diabetic chronic kidney disease; N18.9 Chronic kidney disease, unspecified; E03.9 Hypothyroidism, unspecified; M19.09 Primary osteoarthritis, other specified site
CPT/HCPCS: 36415; 80053; 83735; 85025; 99283; J2470; J2550; J7030

== ENCOUNTER → 2024-08-24 | Outpatient (REF) | payer MEDICARE, BC ==
[~2024-08-24] MED LIST changes: +PROMETHAZINE12.5 MG PR
== END ==
LOC: RAD 13:40
PROVIDERS: ATTEND Internal Medicine
DX: M54.2 Cervicalgia (principal); M54.6 Pain in thoracic spine; M54.50 Low back pain, unspecified
CPT/HCPCS: 72050; 72072; 72220